=== PATIENT | female | born 1990 | race Two or more races ===

== ENCOUNTER 2020-11-01 00:45 | Emergency (ER) | payer MEDICAID ==
[~2020-11-01] VITALS: Ht 167.6 cm; Wt 73.0 kg
[2020-11-01] MEDS ORDERED: ACETAMINOPHEN 325MG TABLET PO STA (02:23)
[2020-11-01] MEDS ORDERED: VISCOUS LIDOCAINE 2% 15 ML UDC PO STA (02:23)
[2020-11-01] MEDS ORDERED: MAGNESIUM/ALUMINUM HYDROXIDE/SIMETHICONE 30ML UDC PO STA (02:23)
[2020-11-01] MEDS ORDERED: OMEPRAZOLE 20MG CAPSULE EXTENDED RELEASE PO ONE (02:30)
[2020-11-01 03:58] VITALS: BP 97/47
== END 2020-11-01 04:02 | disposition home or self-care (01) ==
LOC: ER 00:45
DX: K80.20 Calculus of gallbladder without cholecystitis without obstruction (principal); Q44.7 Other congenital malformations of liver; R93.41 Abnormal radiologic findings on diagnostic imaging of renal pelvis, ureter, or bladder; K21.9 Gastro-esophageal reflux disease without esophagitis
CPT/HCPCS: 71045; 76700; 81025; 93005; 99285

== ENCOUNTER 2021-01-31 02:35 | Emergency (ER) | payer OTHER ==
[~2021-01-31] VITALS: Ht 165.1 cm; Wt 64.0 kg
[2021-01-31] MEDS ORDERED: ONDANSETRON HCL 4MG/2ML INJ IV STA (02:47)
[2021-01-31] MEDS ORDERED: KETOROLAC 30MG/ML VIAL IV STA (02:47)
[2021-01-31] MEDS ORDERED: MORPHINE SULFATE 4 MG/ML CPJ (NOT FOR IM USE) IV STA (02:47)
[2021-01-31 03:07] LABS: BASOPHILS % 0.3 % (0.0-2.0); EOSINOPHILS % 0.6 % (0.0-5.0); HEMATOCRIT. 35.3 % (36.0-48.0); HEMOGLOBIN. 11.8 g/dL (12.0-16.0); MEAN CORPUSCULAR HEMOGLOBIN 29.8 pg (28.0-32.0); MEAN CORPUSCULAR VOLUME 88.9 fL (81.0-99.0); MEAN PLATELET VOLUME 9.4 fl (7.4-10.4); MONOCYTES % 4.9 % (2.0-8.0); NEUTROPHILS % 79.2 % (40.0-76.0); PLATELET 278 x1000/uL (130-400); RED BLOOD CELL COUNT 3.97 mill/uL (4.2-5.4); RED CELL DISTRIBUTION WIDTH 13.3 % (11.6-14.6)
[2021-01-31 03:11] LABS: CHLORIDE 106 mEq/L (98-107)
[2021-01-31 03:14] LABS: HCG SCREEN NEGATIVE
[2021-01-31 03:48] LABS: CLARITY URINE CLEAR (CLEAR); COLOR URINE YELLOW (YELLOW); KETONES URINE NEGATIVE (NEGATIVE); LEUKOCYTE ESTERASE URINE NEGATIVE (NEGATIVE); NITRITE URINE NEGATIVE (NEGATIVE); OCCULT BLOOD URINE NEGATIVE (NEGATIVE); PH URINE 6.5 (4.5-8.0); PROTEIN URINE NEGATIVE (NEGATIVE); SPECIFIC GRAVITY URINE 1.017 (1.005-1.030); UROBILINOGEN URINE 0.2 E.U./dL (0.2-1.0)
[2021-01-31] MEDS ORDERED: KETOROLAC 15MG/ML VIAL IV ONE (04:00)
[2021-01-31] MEDS ORDERED: SODIUM CHLORIDE 0.9% 1,000 ML IV ONE (04:30)
[2021-01-31] MEDS ORDERED: PIPERACILLIN/TAZOBACTAM 3.375GM/50ML PREMIX IV ONE (04:45)
[2021-01-31] MEDS ORDERED: PIPERACILLIN/TAZ 3.375G PREMIX 50 ML IV NR (05:00)
[2021-01-31] MEDS ORDERED: DIPHENHYDRAMINE 50MG/ML VIAL IV ONE (06:15)
[2021-01-31] MEDS ORDERED: MORPHINE SULFATE 4 MG/ML CPJ (NOT FOR IM USE) IV ONE (07:30)
[2021-01-31] MEDS ORDERED: LEVO500T89 MT (12:41)
[2021-01-31] MEDS ORDERED: MORPHINE SULFATE 2 MG/ML CPJ (NOT FOR IM USE) IV PRN (13:15)
[2021-01-31 14:49] VITALS: BP 80/56
== END 2021-01-31 15:08 | disposition short-term general hospital (02) ==
LOC: ER 02:44 → CANRESERV 14:22 → ENRESERV 14:22 → CANBEDREQ 14:33 → ER 15:08
DX: K80.00 Calculus of gallbladder with acute cholecystitis without obstruction (principal)
CPT/HCPCS: 36415; 76705; 80053; 81003; 81025; 83605; 83690; 84145; 84703; 85025; 87040; 93005; 96361; 96365; 96375; 96376; 99285; J1200; J1885; J2270; J2405; J2543; J7030

== ENCOUNTER 2021-06-19 11:14 | Emergency (ER) | payer OTHER ==
[~2021-06-19] VITALS: Ht 157.5 cm; Wt 58.0 kg
[~2021-06-19 11:14] MED LIST: LEVO500T89 MT
[2021-06-19 14:59] LABS: BASOPHILS % 0.5 % (0.0-2.0); EOSINOPHILS % 0.3 % (0.0-5.0); HEMATOCRIT. 40.2 % (36.0-48.0); HEMOGLOBIN. 13.5 g/dL (12.0-16.0); LYMPHOCYTES % 30.2 % (20.0-50.0); MEAN CORPUSCULAR HEMOGLOBIN 29.5 pg (28.0-32.0); MEAN CORPUSCULAR VOLUME 87.8 fL (81.0-99.0); MEAN PLATELET VOLUME 8.6 fl (7.4-10.4); MONOCYTES % 3.8 % (2.0-8.0); NEUTROPHILS % 65.2 % (40.0-76.0); PLATELET 275 x1000/uL (130-400); RED BLOOD CELL COUNT 4.58 mill/uL (4.2-5.4); RED CELL DISTRIBUTION WIDTH 12.9 % (11.6-14.6)
[2021-06-19] MEDS ORDERED: MAGNESIUM/ALUMINUM HYDROXIDE/SIMETHICONE 30ML UDC PO ONE (15:00)
[2021-06-19 15:06] LABS: CLARITY URINE CLOUDY (CLEAR); COLOR URINE YELLOW (YELLOW); KETONES URINE NEGATIVE (NEGATIVE); LEUKOCYTE ESTERASE URINE NEGATIVE (NEGATIVE); NITRITE URINE NEGATIVE (NEGATIVE); OCCULT BLOOD URINE NEGATIVE (NEGATIVE); PH URINE 5.5 (4.5-8.0); PROTEIN URINE NEGATIVE (NEGATIVE); SPECIFIC GRAVITY URINE 1.014 (1.005-1.030); UROBILINOGEN URINE 0.2 E.U./dL (0.2-1.0)
[2021-06-19 15:07] LABS: CHLORIDE 107 mEq/L (98-107)
[2021-06-19] MEDS ORDERED: HYDROCODONE/ACETAMINOPHEN 5/325MG TABLET PO ONE (17:00)
[2021-06-19] MEDS ORDERED: MORPHINE SULFATE 4 MG/ML CPJ (NOT FOR IM USE) IV STA (18:08)
[2021-06-19] MEDS ORDERED: ONDANSETRON HCL 4MG/2ML INJ IV STA (18:08)
[2021-06-19] MEDS ORDERED: KETOROLAC 15MG/ML VIAL IV ONE (20:45)
[2021-06-19] MEDS ORDERED: IOHEXOL-300 100 ML BOTTLE ONE (21:20)
[2021-06-20] MEDS ORDERED: ONDANSETRON HCL 4MG/2ML INJ IV ONE (02:45)
[2021-06-20] MEDS ORDERED: ONDANSETRON HCL 4MG/2ML INJ IV NR (03:00)
[2021-06-20 03:10] VITALS: BP 111/65
== END 2021-06-20 03:28 | disposition short-term general hospital (02) ==
LOC: ER 11:14
DX: K29.70 Gastritis, unspecified, without bleeding (principal); B96.81 Helicobacter pylori [H. pylori] as the cause of diseases classified elsewhere; N83.12 Corpus luteum cyst of left ovary
CPT/HCPCS: 36415; 71045; 74177; 76705; 80053; 81003; 81025; 83690; 83880; 84484; 85025; 93005; 96374; 96375; 96376; 99285; J1885; J2270; J2405; Q9967

== ENCOUNTER 2021-09-10 17:53 | Emergency (ER) | payer OTHER ==
[~2021-09-10] VITALS: Ht 157.5 cm; Wt 60.0 kg
[2021-09-10 18:38] VITALS: BP 118/51
== END 2021-09-10 22:52 | disposition left against medical advice (07) ==
LOC: ER 17:53
DX: Z53.21 Procedure and treatment not carried out due to patient leaving prior to being seen by health care provider (principal)